=== PATIENT | male | born 1950 | race Caucasian/White ===

== ENCOUNTER 2019-02-12 13:11 | Inpatient (IN) ==
[2019-02-12] MEDS ORDERED: cefTRIAXone 2,000 MG in SODIUM CHLORIDE 0.9% 100 ML IV ONE (13:53)
[2019-02-12 15:49] LABS: Basophils # 0.1 10*3/uL (0.0-0.2); Basophils % 0.1 % (0.0-0.8); Hematocrit 36.3 VOL% (42.0-52.0); Hemoglobin 12.3 GM/DL (14.0-18.0); Immature Granulocytes % 3.2 %; Immature Granulocytes Absolute 1.11 #; Lymphocytes # 0.7 10*3/uL (1.4-4.0); Mean Corpuscular HGB Conc 33.9 GM/DL (32-36); Mean Corpuscular Volume 92.4 FL (87-102); Mean Platelet Volume 10.5 FL (9.6-12.0); Monocytes % 4.4 % (1.7-12.7); Neutrophils % 90.3 % (38.7-73.9); Platelet Count 309 T/CUMM (130-400); Red Blood Count 3.93 MC/CUMM (3.8-5.5); Red Cell Distribution Width 12.6 % (9.3-17.3); White Blood Count 34.3 T/CUMM (4-12)
[2019-02-12 16:20] LABS: Sedimentation Rate-Westergren 92 MM/HR (0-20)
[2019-02-12] MEDS ORDERED: cefTRIAXone 1,000 MG VIAL ONE (16:36)
[2019-02-12] MEDS ORDERED: ACETAMINOPHEN 500 MG TABLET ONE (17:24)
[2019-02-12 17:27] LABS: Band Neutrophils 4 % (0-10); Eosinophils 1 % (0-10); Lymphocytes 1 % (20-55); Platelet Estimate Adequate; Segmented Neutrophils 87 % (50-85); Total Cells Counted 100
[2019-02-12] MEDS ORDERED: ACETAMINOPHEN 500 MG TABLET PO STA (17:32)
[2019-02-12] MEDS ORDERED: ONDANSETRON 4 MG/2 ML VIAL IV PRN (17:33)
[2019-02-12] MEDS ORDERED: MORPHINE 4 MG/1 ML VIAL IV PRN (17:33)
[2019-02-12] MEDS: SODIUM CHLORIDE 0.9% 1,000 ML IV SCH (19:30)
[2019-02-12 20:11] LABS: Albumin 2.6 G/DL (3.4-5.0); Bilirubin,Total 0.7 MG/DL (0.2-1.0); Osmolality,Calculated 282.2 MOS/KG (273-304); Total Protein 7.2 G/DL (6.4-8.3)
[2019-02-12] MEDS ORDERED: CELECOXIB 200 MG CAPSULE PO SCH (21:00)
[2019-02-12] MEDS: TAMSULOSIN 0.4 MG CAPSULE PO SCH (21:33)
[2019-02-12] MEDS: GABAPENTIN 300 MG CAPSULE PO SCH (21:34)
[2019-02-12] MEDS: BACLOFEN 10 MG TABLET PO SCH (21:34)
[2019-02-12] MEDS: SIMVASTATIN 40 MG TABLET PO SCH (21:34)
[2019-02-12] MEDS: PIPERACILLIN/TAZOBACTAM 3,375 MG in SODIUM CHLORIDE 0.9% 100 ML IV SCH (21:44)
[2019-02-12] MEDS ORDERED: SODIUM CHLORIDE 0.9% 1,000 ML IV ONE (23:25)
[2019-02-13 02:52] LABS: Basophils # 0.1 10*3/uL (0.0-0.2); Basophils % 0.2 % (0.0-0.8); Hematocrit 30.3 VOL% (42.0-52.0); Hemoglobin 10.4 GM/DL (14.0-18.0); Immature Granulocytes % 4.3 %; Immature Granulocytes Absolute 1.96 #; Lymphocytes # 0.5 10*3/uL (1.4-4.0); Lymphocytes % 1.1 % (21.2-54.2); Mean Corpuscular HGB Conc 34.3 GM/DL (32-36); Mean Corpuscular Volume 92.4 FL (87-102); Mean Platelet Volume 10.8 FL (9.6-12.0); Neutrophils % 90.4 % (38.7-73.9); Platelet Count 283 T/CUMM (130-400); Red Blood Count 3.28 MC/CUMM (3.8-5.5)
[2019-02-13 02:58] LABS: White Blood Count 45.6 T/CUMM (4-12)
[2019-02-13 03:27] LABS: Anisocytosis 1+; Band Neutrophils 21 % (0-10); Lymphocytes 3 % (20-55); Platelet Estimate Adequate; Segmented Neutrophils 74 % (50-85); Total Cells Counted 100
[2019-02-13 03:30] LABS: Albumin 2.3 G/DL (3.4-5.0); Bilirubin,Total 1.2 MG/DL (0.2-1.0); Calcium 8.5 MG/DL (8.5-10.1); Risk Ratio 4.35; Thyroid Stimulating Hormone 0.292 uIU/ml (0.358-3.74); Total Protein 6.2 G/DL (6.4-8.3); VLDL CHOLESTEROL 23.8 MG/DL
[2019-02-13] MEDS ORDERED: SODIUM CHLORIDE 0.9% 1,000 ML IV ONE ×2 (03:56→07:46)
[2019-02-13] MEDS ORDERED: VANCOMYCIN INJ 1,500 MG in SODIUM CHLORIDE 0.9% 500 ML IV SCH (04:00)
[2019-02-13] MEDS: PIPERACILLIN/TAZOBACTAM 3,375 MG in SODIUM CHLORIDE 0.9% 100 ML IV SCH ×3 (04:40→20:25)
[2019-02-13] MEDS: ACETAMINOPHEN 325 MG TABLET PO PRN ×2 (04:54→08:44)
[2019-02-13] MEDS ORDERED: ACETAMINOPHEN 325 MG/10.15 ML UDCUP PO ONE (06:19)
[2019-02-13] MEDS ORDERED: DOPamine 800 MG/250 ML PREMIX IV PRN (07:46)
[2019-02-13] MEDS: SODIUM CHLORIDE 0.9% 1,000 ML IV SCH ×4 (08:01→21:21)
[2019-02-13 08:11] LABS: Amorphous Crystals,Urine Few /HPF (Few); Apearance,Urine CLOUDY (Clear); Bilirubin,Urine Negative (Negative); Blood, Urine Large mg/dL (Negative); Glucose,Urine (UA) Negative (Negative); Ketones,Urine Negative (Negative); Mucus,Urine Many /LPF (Occasional); Nitrite,Urine Positive (Negative); Protein,Urine 100 MG/DL; RBC,Urine 5 /HPF (0-4); Sperm,Urine Occasional /HPF (Negative); Urine Color Amber (Yellow); Urine Specific Gravity 1.017 (1.001-1.035); Urine Urobilinogen < 2.0 EU/DL (0.2-1.0); WBC,Urine 19 /HPF (0-6)
[2019-02-13] MEDS: GABAPENTIN 300 MG CAPSULE PO SCH ×3 (08:44→20:25)
[2019-02-13] MEDS: TAMSULOSIN 0.4 MG CAPSULE PO SCH ×2 (08:44→20:25)
[2019-02-13] MEDS: VITAMIN E 400 UNIT CAPSULE PO SCH (08:44)
[2019-02-13] MEDS: MONTELUKAST 10 MG TABLET PO SCH (08:44)
[2019-02-13] MEDS: BACLOFEN 10 MG TABLET PO SCH ×2 (08:44→20:25)
[2019-02-13] MEDS: PANTOPRAZOLE 40 MG TABLET PO SCH (08:44)
[2019-02-13] MEDS ORDERED: COENZYME Q10 30 MG PO SCH (09:00)
[2019-02-13] MEDS: HYDROCORTISONE 100 MG VIAL IV SCH ×2 (09:44→16:54)
[2019-02-13 14:13] LABS: Basophils # 0.1 10*3/uL (0.0-0.2); Basophils % 0.2 % (0.0-0.8); Hematocrit 32.5 VOL% (42.0-52.0); Hemoglobin 10.9 GM/DL (14.0-18.0); Immature Granulocytes % 2.8 %; Immature Granulocytes Absolute 1.12 #; Lymphocytes # 0.4 10*3/uL (1.4-4.0); Mean Corpuscular HGB Conc 33.5 GM/DL (32-36); Mean Corpuscular Volume 92.9 FL (87-102); Monocytes % 4.1 % (1.7-12.7); Neutrophils % 91.9 % (38.7-73.9); Platelet Count 294 T/CUMM (130-400); Red Cell Distribution Width 13.3 % (9.3-17.3)
[2019-02-13 14:19] LABS: White Blood Count 40.3 T/CUMM (4-12)
[2019-02-13 14:26] LABS: Calcium 8.8 MG/DL (8.5-10.1); Osmolality,Calculated 297.3 MOS/KG (273-304)
[2019-02-13 14:43] LABS: Band Neutrophils 3 % (0-10); Lymphocytes 1 % (20-55); Platelet Estimate Normal; Segmented Neutrophils 92 % (50-85); Total Cells Counted 100
[2019-02-13] MEDS: SIMVASTATIN 40 MG TABLET PO SCH (20:25)
[2019-02-14] MEDS: HYDROCORTISONE 100 MG VIAL IV SCH ×3 (00:51→17:02)
[2019-02-14] MEDS: SODIUM CHLORIDE 0.9% 1,000 ML IV SCH ×2 (04:19→08:44)
[2019-02-14] MEDS: PIPERACILLIN/TAZOBACTAM 3,375 MG in SODIUM CHLORIDE 0.9% 100 ML IV SCH (04:19)
[2019-02-14 04:22] LABS: Hematocrit 33.1 VOL% (42.0-52.0); Hemoglobin 10.7 GM/DL (14.0-18.0); Immature Granulocytes % 4.1 %; Immature Granulocytes Absolute 1.68 #; Lymphocytes # 0.5 10*3/uL (1.4-4.0); Lymphocytes % 1.2 % (21.2-54.2); Mean Corpuscular HGB Conc 32.3 GM/DL (32-36); Mean Corpuscular Volume 97.4 FL (87-102); Mean Platelet Volume 10.3 FL (9.6-12.0); Monocytes % 4.7 % (1.7-12.7); Platelet Count 293 T/CUMM (130-400); Red Cell Distribution Width 13.7 % (9.3-17.3)
[2019-02-14 04:47] LABS: Bilirubin,Total 0.7 MG/DL (0.2-1.0); Calcium 8.3 MG/DL (8.5-10.1); Osmolality,Calculated 293.3 MOS/KG (273-304); Total Protein 6.3 G/DL (6.4-8.3)
[2019-02-14 04:53] LABS: White Blood Count 41.4 T/CUMM (4-12)
[2019-02-14 06:04] LABS: Band Neutrophils 4 % (0-10); Lymphocytes 2 % (20-55); Segmented Neutrophils 90 % (50-85)
[2019-02-14 06:05] LABS: Platelet Estimate Normal; Total Cells Counted 100
[2019-02-14] MEDS ORDERED: MEROPENEM 500 MG in SODIUM CHLORIDE 0.9% 100 ML IV SCH (08:30)
[2019-02-14] MEDS: GABAPENTIN 300 MG CAPSULE PO SCH ×3 (08:56→20:11)
[2019-02-14] MEDS: PANTOPRAZOLE 40 MG TABLET PO SCH (08:57)
[2019-02-14] MEDS: VITAMIN E 400 UNIT CAPSULE PO SCH (08:57)
[2019-02-14] MEDS: TAMSULOSIN 0.4 MG CAPSULE PO SCH ×2 (08:57→20:11)
[2019-02-14] MEDS: BACLOFEN 10 MG TABLET PO SCH ×2 (08:57→20:11)
[2019-02-14] MEDS: LACTATED RINGERS 1,000 ML IV SCH ×2 (08:57→16:58)
[2019-02-14] MEDS: MONTELUKAST 10 MG TABLET PO SCH (09:01)
[2019-02-14] MEDS: LEVOFLOXACIN 750 MG TABLET PO SCH (13:40)
[2019-02-14] MEDS: SIMVASTATIN 40 MG TABLET PO SCH (20:11)
[2019-02-14] MEDS: ACETAMINOPHEN 325 MG TABLET PO PRN (20:22)
[2019-02-15] MEDS: LACTATED RINGERS 1,000 ML IV SCH ×2 (00:55→08:44)
[2019-02-15] MEDS: HYDROCORTISONE 100 MG VIAL IV SCH (01:16)
[2019-02-15 04:50] LABS: Basophils # 0.1 10*3/uL (0.0-0.2); Basophils % 0.2 % (0.0-0.8); Hematocrit 31.8 VOL% (42.0-52.0); Hemoglobin 10.5 GM/DL (14.0-18.0); Immature Granulocytes % 8.6 %; Immature Granulocytes Absolute 2.89 #; Lymphocytes # 0.6 10*3/uL (1.4-4.0); Lymphocytes % 1.7 % (21.2-54.2); Mean Corpuscular Volume 93.5 FL (87-102); Mean Platelet Volume 10.4 FL (9.6-12.0); Monocytes % 4.2 % (1.7-12.7); Neutrophils % 85.3 % (38.7-73.9); Platelet Count 306 T/CUMM (130-400); Red Cell Distribution Width 13.6 % (9.3-17.3); White Blood Count 33.6 T/CUMM (4-12)
[2019-02-15 05:25] LABS: Albumin 1.7 G/DL (3.4-5.0); Bilirubin,Total 0.7 MG/DL (0.2-1.0); Calcium 8.1 MG/DL (8.5-10.1); Osmolality,Calculated 293.1 MOS/KG (273-304); Total Protein 5.5 G/DL (6.4-8.3)
[2019-02-15 05:35] LABS: Lymphocytes 3 % (20-55); Platelet Estimate Normal; Segmented Neutrophils 94 % (50-85); Total Cells Counted 100
[2019-02-15 05:36] LABS: Ovalocytes Slight
[2019-02-15] MEDS: GABAPENTIN 300 MG CAPSULE PO SCH ×3 (08:37→21:20)
[2019-02-15] MEDS: VITAMIN E 400 UNIT CAPSULE PO SCH (08:37)
[2019-02-15] MEDS: LEVOFLOXACIN 750 MG TABLET PO SCH (08:40)
[2019-02-15] MEDS: BACLOFEN 10 MG TABLET PO SCH ×2 (08:40→21:21)
[2019-02-15] MEDS: HYDROCORTISONE 10 MG TABLET PO SCH ×2 (08:40→21:20)
[2019-02-15] MEDS: TAMSULOSIN 0.4 MG CAPSULE PO SCH ×2 (08:40→21:20)
[2019-02-15] MEDS: PANTOPRAZOLE 40 MG TABLET PO SCH (08:41)
[2019-02-15] MEDS: MONTELUKAST 10 MG TABLET PO SCH (08:41)
[2019-02-15] MEDS: ENOXAPARIN 100 MG/ML SYRINGE SUBCUT SCH ×2 (08:41→21:20)
[2019-02-15] MEDS: MEROPENEM 500 MG in SODIUM CHLORIDE 0.9% 100 ML IV SCH ×3 (08:41→21:27)
[2019-02-15] MEDS ORDERED: CYANOCOBALAMIN 1000 MCG/1 ML VIAL SUBCUT SCH (09:00)
[2019-02-15] MEDS: LIDOCAINE 5% PATCH TRANSDERM SCH ×2 (11:52→22:34)
[2019-02-15] MEDS: SIMVASTATIN 40 MG TABLET PO SCH (21:21)
[2019-02-16] MEDS: LACTATED RINGERS 1,000 ML IV SCH ×2 (01:45→21:06)
[2019-02-16] MEDS: MEROPENEM 500 MG in SODIUM CHLORIDE 0.9% 100 ML IV SCH ×4 (01:46→21:08)
[2019-02-16 06:19] LABS: Basophils % 0.1 % (0.0-0.8); Hematocrit 30.8 VOL% (42.0-52.0); Hemoglobin 10.5 GM/DL (14.0-18.0); Immature Granulocytes % 2.7 %; Immature Granulocytes Absolute 0.61 #; Lymphocytes # 1.2 10*3/uL (1.4-4.0); Lymphocytes % 5.4 % (21.2-54.2); Mean Corpuscular HGB Conc 34.1 GM/DL (32-36); Mean Corpuscular Volume 91.4 FL (87-102); Mean Platelet Volume 10.8 FL (9.6-12.0); Monocytes % 6.8 % (1.7-12.7); Platelet Count 313 T/CUMM (130-400); Red Blood Count 3.37 MC/CUMM (3.8-5.5); Red Cell Distribution Width 13.6 % (9.3-17.3); White Blood Count 22.5 T/CUMM (4-12)
[2019-02-16 06:41] LABS: Calcium 8.1 MG/DL (8.5-10.1); Osmolality,Calculated 288.1 MOS/KG (273-304)
[2019-02-16 06:47] LABS: Hypochromasia 1+; Lymphocytes 5 % (20-55); Segmented Neutrophils 89 % (50-85); Total Cells Counted 100
[2019-02-16 06:48] LABS: Microcytosis Slight; Ovalocytes Slight; Platelet Estimate Normal
[2019-02-16] MEDS: GABAPENTIN 300 MG CAPSULE PO SCH ×3 (08:57→21:11)
[2019-02-16] MEDS: HYDROCORTISONE 10 MG TABLET PO SCH ×2 (08:57→21:12)
[2019-02-16] MEDS: ENOXAPARIN 40 MG/0.4 ML SYRINGE SUBCUT SCH (08:57)
[2019-02-16] MEDS: MONTELUKAST 10 MG TABLET PO SCH (08:58)
[2019-02-16] MEDS: BACLOFEN 10 MG TABLET PO SCH ×2 (08:58→21:12)
[2019-02-16] MEDS: TAMSULOSIN 0.4 MG CAPSULE PO SCH ×2 (08:58→21:12)
[2019-02-16] MEDS: VITAMIN E 400 UNIT CAPSULE PO SCH (08:58)
[2019-02-16] MEDS: LEVOFLOXACIN 750 MG TABLET PO SCH (08:58)
[2019-02-16] MEDS: PANTOPRAZOLE 40 MG TABLET PO SCH (08:58)
[2019-02-16] MEDS: LIDOCAINE 5% PATCH TRANSDERM SCH ×2 (10:09→22:03)
[2019-02-16] MEDS: oxyCODONE/ACETAMINOPHEN 5-325 MG TABLET PO PRN ×2 (13:44→21:17)
[2019-02-16] MEDS: SIMVASTATIN 40 MG TABLET PO SCH (21:11)
[2019-02-16] MEDS: ASCORBIC ACID 500 MG TABLET PO SCH (21:12)
[2019-02-17] MEDS: MEROPENEM 500 MG in SODIUM CHLORIDE 0.9% 100 ML IV SCH ×4 (01:42→19:41)
[2019-02-17 05:45] LABS: Basophils # 0.1 10*3/uL (0.0-0.2); Basophils % 0.2 % (0.0-0.8); Eosinophils % 0.1 % (0.00-10.9); Hematocrit 31.8 VOL% (42.0-52.0); Hemoglobin 10.7 GM/DL (14.0-18.0); Immature Granulocytes % 4.2 %; Immature Granulocytes Absolute 1.09 #; Lymphocytes # 1.6 10*3/uL (1.4-4.0); Lymphocytes % 6.3 % (21.2-54.2); Mean Corpuscular HGB Conc 33.6 GM/DL (32-36); Mean Platelet Volume 10.3 FL (9.6-12.0); Neutrophils % 83.2 % (38.7-73.9); Platelet Count 347 T/CUMM (130-400); Red Blood Count 3.42 MC/CUMM (3.8-5.5); Red Cell Distribution Width 13.5 % (9.3-17.3); White Blood Count 25.7 T/CUMM (4-12)
[2019-02-17 06:05] LABS: Lymphocytes 8 % (20-55); Segmented Neutrophils 91 % (50-85); Total Cells Counted 100
[2019-02-17 06:06] LABS: Hypochromasia Slight; Microcytosis Slight
[2019-02-17 06:07] LABS: Platelet Estimate Normal
[2019-02-17] MEDS: ENOXAPARIN 40 MG/0.4 ML SYRINGE SUBCUT SCH (08:40)
[2019-02-17] MEDS: HYDROCORTISONE 10 MG TABLET PO SCH ×2 (08:41→21:28)
[2019-02-17] MEDS: oxyCODONE/ACETAMINOPHEN 5-325 MG TABLET PO PRN (08:42)
[2019-02-17] MEDS: ASCORBIC ACID 500 MG TABLET PO SCH ×2 (08:42→21:29)
[2019-02-17] MEDS: PANTOPRAZOLE 40 MG TABLET PO SCH (08:42)
[2019-02-17] MEDS: MONTELUKAST 10 MG TABLET PO SCH (08:42)
[2019-02-17] MEDS: LEVOFLOXACIN 750 MG TABLET PO SCH (08:42)
[2019-02-17] MEDS: BACLOFEN 10 MG TABLET PO SCH ×2 (08:42→21:29)
[2019-02-17] MEDS: TAMSULOSIN 0.4 MG CAPSULE PO SCH ×2 (08:42→21:29)
[2019-02-17] MEDS: GABAPENTIN 300 MG CAPSULE PO SCH ×3 (08:43→21:28)
[2019-02-17] MEDS: VITAMIN E 400 UNIT CAPSULE PO SCH (08:43)
[2019-02-17] MEDS: LIDOCAINE 5% PATCH TRANSDERM SCH ×2 (10:15→23:37)
[2019-02-17] MEDS: LACTATED RINGERS 1,000 ML IV SCH (17:19)
[2019-02-17] MEDS: SIMVASTATIN 40 MG TABLET PO SCH (21:29)
[2019-02-18] MEDS: MEROPENEM 500 MG in SODIUM CHLORIDE 0.9% 100 ML IV SCH ×2 (01:59→09:33)
[2019-02-18 05:43] LABS: Basophils % 0.2 % (0.0-0.8); Eosinophils % 0.1 % (0.00-10.9); Hematocrit 32.9 VOL% (42.0-52.0); Immature Granulocytes % 5.5 %; Immature Granulocytes Absolute 1.31 #; Lymphocytes # 1.6 10*3/uL (1.4-4.0); Lymphocytes % 6.8 % (21.2-54.2); Mean Corpuscular HGB Conc 33.4 GM/DL (32-36); Mean Corpuscular Volume 92.9 FL (87-102); Mean Platelet Volume 10.3 FL (9.6-12.0); Monocytes % 6.2 % (1.7-12.7); Neutrophils % 81.2 % (38.7-73.9); Platelet Count 367 T/CUMM (130-400); Red Blood Count 3.54 MC/CUMM (3.8-5.5); Red Cell Distribution Width 13.3 % (9.3-17.3); White Blood Count 23.7 T/CUMM (4-12)
[2019-02-18 06:09] LABS: Hypochromasia Slight; Lymphocytes 8 % (20-55); Microcytosis Slight; Myelocytes 2 %; Segmented Neutrophils 84 % (50-85); Total Cells Counted 100
[2019-02-18 06:10] LABS: Atypical Lymphocytes Few
[2019-02-18 06:15] LABS: Calcium 7.9 MG/DL (8.5-10.1)
[2019-02-18] MEDS: ENOXAPARIN 40 MG/0.4 ML SYRINGE SUBCUT SCH (09:36)
[2019-02-18] MEDS: LIDOCAINE 5% PATCH TRANSDERM SCH ×3 (09:36→22:41)
[2019-02-18] MEDS: MONTELUKAST 10 MG TABLET PO SCH (09:37)
[2019-02-18] MEDS: VITAMIN E 400 UNIT CAPSULE PO SCH (09:37)
[2019-02-18] MEDS: ASCORBIC ACID 500 MG TABLET PO SCH ×2 (09:37→21:06)
[2019-02-18] MEDS: HYDROCORTISONE 10 MG TABLET PO SCH (09:37)
[2019-02-18] MEDS: BACLOFEN 10 MG TABLET PO SCH ×2 (09:37→21:06)
[2019-02-18] MEDS: TAMSULOSIN 0.4 MG CAPSULE PO SCH ×2 (09:37→21:06)
[2019-02-18] MEDS: PANTOPRAZOLE 40 MG TABLET PO SCH (09:38)
[2019-02-18] MEDS: LEVOFLOXACIN 750 MG TABLET PO SCH (09:38)
[2019-02-18] MEDS: GABAPENTIN 300 MG CAPSULE PO SCH ×3 (09:38→21:06)
[2019-02-18] MEDS ORDERED: DEXTROSE 50% 25 GM/50 ML VIAL IV PRN (13:24)
[2019-02-18] MEDS ORDERED: GLUCAGON 1 MG VIAL IM PRN (13:24)
[2019-02-18] MEDS: LACTATED RINGERS 1,000 ML IV SCH (13:28)
[2019-02-18] MEDS ORDERED: FUROSEMIDE 40 MG TABLET PO ONE (13:35)
[2019-02-18] MEDS: INSULIN REGULAR 100 UNIT/ML SUBCUT SCH ×2 (16:58→21:07)
[2019-02-18] MEDS: SIMVASTATIN 40 MG TABLET PO SCH (21:06)
[2019-02-19] MEDS: oxyCODONE/ACETAMINOPHEN 5-325 MG TABLET PO PRN ×2 (04:36→15:22)
[2019-02-19 06:31] LABS: Basophils % 0.2 % (0.0-0.8); Eosinophils # 0.1 10*3/uL (0.0-0.87); Eosinophils % 0.4 % (0.00-10.9); Hematocrit 32.6 VOL% (42.0-52.0); Hemoglobin 10.9 GM/DL (14.0-18.0); Immature Granulocytes % 3.7 %; Immature Granulocytes Absolute 0.73 #; Lymphocytes # 1.5 10*3/uL (1.4-4.0); Lymphocytes % 7.5 % (21.2-54.2); Mean Corpuscular HGB Conc 33.4 GM/DL (32-36); Mean Corpuscular Volume 93.1 FL (87-102); Mean Platelet Volume 9.9 FL (9.6-12.0); Monocytes % 7.2 % (1.7-12.7); Platelet Count 371 T/CUMM (130-400); Red Cell Distribution Width 13.3 % (9.3-17.3); White Blood Count 19.6 T/CUMM (4-12)
[2019-02-19 06:57] LABS: Albumin 1.8 G/DL (3.4-5.0); Bilirubin,Total 0.5 MG/DL (0.2-1.0); Calcium 8.1 MG/DL (8.5-10.1); Osmolality,Calculated 276.7 MOS/KG (273-304)
[2019-02-19 07:33] LABS: Lymphocytes 12 % (20-55); Segmented Neutrophils 82 % (50-85); Total Cells Counted 100
[2019-02-19 07:34] LABS: Ovalocytes Slight; Platelet Estimate Normal; Tear Drop Cells Few
[2019-02-19 07:35] LABS: Hypochromasia Slight; Microcytosis Slight
[2019-02-19] MEDS: INSULIN REGULAR 100 UNIT/ML SUBCUT SCH ×2 (08:50→15:04)
[2019-02-19] MEDS ORDERED: HYDROCORTISONE 10 MG TABLET PO SCH (09:00)
[2019-02-19] MEDS: LEVOFLOXACIN 750 MG TABLET PO SCH (09:55)
[2019-02-19] MEDS: TAMSULOSIN 0.4 MG CAPSULE PO SCH (09:55)
[2019-02-19] MEDS: VITAMIN E 400 UNIT CAPSULE PO SCH (09:55)
[2019-02-19] MEDS: ENOXAPARIN 40 MG/0.4 ML SYRINGE SUBCUT SCH (09:55)
[2019-02-19] MEDS: MONTELUKAST 10 MG TABLET PO SCH (09:57)
[2019-02-19] MEDS: GABAPENTIN 300 MG CAPSULE PO SCH ×2 (09:57→15:05)
[2019-02-19] MEDS: BACLOFEN 10 MG TABLET PO SCH (09:57)
[2019-02-19] MEDS: PANTOPRAZOLE 40 MG TABLET PO SCH (09:57)
[2019-02-19] MEDS: LIDOCAINE 5% PATCH TRANSDERM SCH (09:58)
[2019-02-19 13:52] VITALS: BP 129/70
[2019-02-19] MEDS: ASCORBIC ACID 500 MG TABLET PO SCH (15:03)
== END 2019-02-19 15:21 | disposition home or self-care (01) | DRG 871 ==
LOC: N.ED 13:11 → N.EDINP 17:32 → SUATTDRO 17:32 → N.5E 18:54 → N.CC 19:00 → N.TELEN 02-15 17:34
PROVIDERS: ADMIT Hospitalist; ATTEND Internal Medicine